=== PATIENT | female | born 1950 | race Caucasian/White ===

== ENCOUNTER 2019-02-21 06:00 | Outpatient (RCR) | payer MEDICARE, OTHER, SELFPAY | END 2019-03-23 00:01 | LOC: SOT 06:00 | PROVIDERS: Family Provider Electrodiagnostic Medicine; Visit Provider Orthopaedic Surgery | DX: Z47.89 Encounter for other orthopedic aftercare (principal) | CPT/HCPCS: 97110 ×3; 97112; G0283 ==

== ENCOUNTER 2019-03-15 17:21 | Inpatient (IN) | payer MEDICARE, OTHER, SELFPAY | END 2019-03-17 15:05 | disposition home health service (06) | DRG 176 | PROVIDERS: Admitting Provider Internal Medicine; Family Provider Electrodiagnostic Medicine; Visit Provider Student in an Organized Health Care Education/Training Program | DX: I26.99 Other pulmonary embolism without acute cor pulmonale (principal); E03.9 Hypothyroidism, unspecified; F41.8 Other specified anxiety disorders ==

== ENCOUNTER 2019-03-24 12:33 | Outpatient (RCR) | payer MEDICARE, OTHER, SELFPAY | END 2019-04-23 23:59 | disposition home or self-care (01) | LOC: SOT 12:33 | PROVIDERS: Family Provider Electrodiagnostic Medicine; PCP Electrodiagnostic Medicine; Visit Provider Orthopaedic Surgery | DX: S42.302D Unspecified fracture of shaft of humerus, left arm, subsequent encounter for fracture with routine healing (principal); X58.XXXD Exposure to other specified factors, subsequent encounter ==

== ENCOUNTER → 2019-04-05 13:52 | Outpatient (BNVA) | payer MEDICARE, OTHER, SELFPAY | PROVIDERS: Family Provider Electrodiagnostic Medicine; PCP Electrodiagnostic Medicine; Visit Provider Orthopaedic Surgery | DX: S42.302A Unspecified fracture of shaft of humerus, left arm, initial encounter for closed fracture (principal); X58.XXXA Exposure to other specified factors, initial encounter | CPT/HCPCS: 73030 ==

== ENCOUNTER 2019-04-19 07:13 | Outpatient (RCR) | payer MEDICARE, OTHER, SELFPAY | END 2019-04-23 23:59 | disposition home or self-care (01) | LOC: SPT 07:13 | PROVIDERS: Family Provider Electrodiagnostic Medicine; PCP Electrodiagnostic Medicine; Referring Provider Orthopaedic Surgery; Visit Provider Orthopaedic Surgery | DX: S42.202D Unspecified fracture of upper end of left humerus, subsequent encounter for fracture with routine healing (principal); X58.XXXD Exposure to other specified factors, subsequent encounter | CPT/HCPCS: 97110; 97162 ==

== ENCOUNTER 2019-04-24 06:00 | Outpatient (RCR) | payer MEDICARE, OTHER, SELFPAY | END 2019-05-22 23:59 | disposition home or self-care (01) | LOC: SOT 06:00 | PROVIDERS: Family Provider Electrodiagnostic Medicine; PCP Electrodiagnostic Medicine; Visit Provider Orthopaedic Surgery | DX: Z01.89 Encounter for other specified special examinations (principal) ==

== ENCOUNTER 2019-04-24 06:00 | Outpatient (RCR) | payer MEDICARE, OTHER, SELFPAY | END 2019-05-22 23:59 | disposition home or self-care (01) | LOC: SPT 06:00 | PROVIDERS: Family Provider Electrodiagnostic Medicine; PCP Electrodiagnostic Medicine; Referring Provider Orthopaedic Surgery; Visit Provider Orthopaedic Surgery | DX: S42.202D Unspecified fracture of upper end of left humerus, subsequent encounter for fracture with routine healing (principal); X58.XXXD Exposure to other specified factors, subsequent encounter | CPT/HCPCS: 97110 ==

== ENCOUNTER 2019-05-23 06:00 | Outpatient (RCR) | payer MEDICARE, OTHER, SELFPAY | END 2019-06-22 23:59 | disposition home or self-care (01) | LOC: SPT 06:00 | PROVIDERS: Family Provider Electrodiagnostic Medicine; PCP Nurse Practitioner; Referring Provider Orthopaedic Surgery; Visit Provider Orthopaedic Surgery | DX: Z47.89 Encounter for other orthopedic aftercare (principal) | CPT/HCPCS: 97110 ==

== ENCOUNTER 2020-12-08 09:52 | Outpatient (CLI) | payer MEDICARE, OTHER, SELFPAY ==
[2020-12-08 10:12] VITALS: BP 101/79; PULSE 73; RESP 18; TEMP 36.8; O2SAT 98; BMI 29.1
[2020-12-08 10:40] VITALS: BP 94/68; PULSE 73; RESP 16; TEMP 36.8; O2SAT 97
[2020-12-08 11:40] VITALS: BP 101/63; PULSE 62; RESP 18; TEMP 36.7; O2SAT 94
== END 2020-12-08 09:53 | disposition home or self-care (01) ==
LOC: OPS 09:56
PROVIDERS: PCP Electrodiagnostic Medicine; Visit Provider Electrodiagnostic Medicine
DX: U07.1 COVID-19 (principal)
CPT/HCPCS: 96365

== ENCOUNTER → 2023-05-15 08:29 | Outpatient (BNVA) | payer MEDICARE, SELFPAY | PROVIDERS: PCP Electrodiagnostic Medicine; Referring Provider Electrodiagnostic Medicine; Visit Provider Dermatology | DX: S20.309A Unspecified superficial injuries of unspecified front wall of thorax, initial encounter (principal); X58.XXXA Exposure to other specified factors, initial encounter; L57.0 Actinic keratosis; L81.4 Other melanin hyperpigmentation; L57.8 Other skin changes due to chronic exposure to nonionizing radiation; D22.39 Melanocytic nevi of other parts of face; D48.5 Neoplasm of uncertain behavior of skin | CPT/HCPCS: 11102; 17000; 99203 ==

== ENCOUNTER → 2023-11-12 14:23 | Outpatient (BNVA) | payer MEDICARE, SELFPAY | PROVIDERS: PCP Electrodiagnostic Medicine; Visit Provider Nurse Practitioner Family | DX: L81.4 Other melanin hyperpigmentation (principal); L57.8 Other skin changes due to chronic exposure to nonionizing radiation; L82.1 Other seborrheic keratosis; D22.39 Melanocytic nevi of other parts of face; Z85.828 Personal history of other malignant neoplasm of skin | CPT/HCPCS: 99213 ==

== ENCOUNTER → 2023-12-23 08:35 | Outpatient (BNVA) | payer MEDICARE, SELFPAY | PROVIDERS: PCP Electrodiagnostic Medicine; Visit Provider Nurse Practitioner Family | DX: D48.5 Neoplasm of uncertain behavior of skin (principal); L82.1 Other seborrheic keratosis; D18.01 Hemangioma of skin and subcutaneous tissue; L81.4 Other melanin hyperpigmentation; L57.8 Other skin changes due to chronic exposure to nonionizing radiation; Z85.828 Personal history of other malignant neoplasm of skin | CPT/HCPCS: 11102; 99213 ==

== ENCOUNTER → 2024-10-19 07:58 | Outpatient (BNVA) | payer MEDICARE, SELFPAY | PROVIDERS: PCP Electrodiagnostic Medicine; Visit Provider Internal Medicine Cardiovascular Disease | DX: R00.2 Palpitations (principal); E03.9 Hypothyroidism, unspecified; I10 Essential (primary) hypertension; E78.2 Mixed hyperlipidemia; Z79.01 Long term (current) use of anticoagulants | CPT/HCPCS: 93005; 99204 ==

== ENCOUNTER 2024-12-10 08:10 | Outpatient (CLI) | payer MEDICARE, SELFPAY ==
--- NOTE | 2024-12-10 | ECG_ITS ---
[facility]10 Pat Name: Carley Trotter Department: Room: Gender: Female [employer]sembled [employer] Rep[employer]r: : 1950 Requested By: Warren Benton Order Number: [id number] [place] MD: Warren Benton M.D. Interpretive Statements Procedure: The patient was exercised by the Mark protocol. Vital signs and ECG findings: Baseline blood pressure 139/82 with a heart rate of 65 The patient exercised for 3 minutes and 46 seconds which is below average for the patient's age. Patient achieved 4.6 METS of exercise Maximum heart rate reached was 141 which is 95% of maximal predicted heart rate Maximum blood pressure was 100 [id number]/100 Blood pressure at the end of recovery was 168/75 with a heart rate of 73 Baseline EKG shows normal sinus rhythm with nonspecific T wave flattening and low voltage in the precordial leads There were frequent PVCs during exercise There were no ST-T changes compared to baseline CONCLUSION: 1. Exercise capacity was below average for age. 2. Heart rate response was appropriate. 3. Blood pressure response was appropriate. 4. No symptoms of angina during exercise. 5. Frequent premature ventricular contractions during exercise, resolved in recovery. 6. Electrocardiogram portion of the stress test without evidence of ischemia. 7. Nuclear scan will be documented separately. Electronically Signed On 12-19-2024 14:56:50 CDT by Warren Benton M.D. [email or web address]
--- NOTE | 2024-12-10 08:22 | USCV_ITS ---
Carley Trotter Age: 74 Gender: F : 1950 Exam Date: 12/10/2024 09:03 Ordering Phys: Warren Benton MD ([email or web address]) Technologist: Ian Villanueva Exam Location: [facility] [place] Indication: sob BP: 148 / 72 HR: 57 Rhythm: Sinus Technical Quality: Adequate MEASUREMENTS (Male / Female) Normal Values 2D ECHO LV Diastolic Diameter PLAX 4.8 cm 4.2 - 5.9 / 3.9 - 5.3 cm IVS Diastolic Thickness 0.8 cm 0.6 - 1.0 / 0.6 - 0.9 cm IVS Systolic Thickness 1.1 cm LVPW Diastolic Thickness 0.8 cm 0.6 - 1.0 / 0.6 - 0.9 cm LVPW Systolic Thickness 1.4 cm LVOT Diameter 2.0 cm LV Ejection Fraction 2D Teich 66.2 % LV Ejection Fraction MOD 4C 77.3 % LV Ejection Fraction MOD 2C 66.9 % LV Ejection Fraction 2C AL 66.8 % LA Diameter 3.5 cm RA Systolic Volume 4C AL 25.7 ml RA Systolic Volume 4C MOD 25.1 ml LA Sys Volume AL 35.3 cm cubed LA Sys Volume Index AL 18.2 cm cubed/m squared Aorta at Sinotubular Diameter 2.6 cm IVC Diameter 1.5 cm M-MODE LA Ao Ratio MM 1.0 AV Cusp Separation MM 2.1 cm DOPPLER AV Peak Velocity 97.0 cm/s LVOT Peak Velocity 90.0 cm/s AV Area Cont Eq vti 3.7 cm squared AV Area Cont Eq pk 2.9 cm squared MV Peak Velocity 86.0 cm/s MV Area PHT 3.9 cm squared Mitral E to A Ratio 0.8 PV Peak Velocity 74.7 cm/s RV Ejection Time 0.3 s FINDINGS Left Ventricle Normal left ventricular size, systolic function and wall thickness, with no regional wall motion abnormalities. Left ventricular ejection fraction is 66%. Normal diastolic function. Right Ventricle Normal right ventricular size and systolic function. RVSP could not be calculated due to incomplete tricuspid regurgitation velocity profile. Right Atrium Normal right atrial size. Left Atrium Normal left atrial size. Mitral Valve No mitral valve stenosis. Trace mitral valve regurgitation. Aortic Valve No aortic valve stenosis. No aortic valve regurgitation. Tricuspid Valve Trace tricuspid valve regurgitation. Pulmonic Valve Trace pulmonary valve regurgitation. Pericardium No pericardial effusion. Aorta Normal size aortic root and proximal ascending aorta. IVC Normal inferior vena cava. CONCLUSIONS 1. Normal biventricular size and function. EF 66%. 2. Normal LV diastolic function. 3.RVSP could not be calculated due to incomplete tricuspid regurgitation velocity profile. 4. No significant valvular abnormalities Warren Benton MD, FACC (Electronically Signed) Final Date: 16 December 2024 20:48 S
--- NOTE | 2024-12-10 10:59 | NMCV_ITS ---
NM vamsi perf SPECT r/s* [id number] SergoCarlye Age: 74 Gender: F : 1950 Exam Date: 12/10/2024 11:00 Ordering Phys: Warren Benton MD ([email or web address]) Technologist: GIULIA Sahu Exam Location: [facility] Indications: cp STRESS TEST Please see separate stress test report in [facility] for full findings IMAGE PROTOCOL Rest/Stress 1 Exercise Day Radiopharmaceutical Dose (mCi) Administration Site Administered by Rest: Tc-99m 10.4 IV GIULIA Sahu Sestamibi Stress:Tc-99m 32.8 IV GIULIA Sosa Sestamibi Rest: 10-Dec-2024 60 Discovery 630 Stress: 10-Dec-2024 15 Discovery 630 Radiopharmaceutical was injected at 86 % maximum heart rate. Supine position only as patient was unable to lay prone. SPECT RESULTS Technical Quality: Good Raw Data Analysis: Normal Image Corrections: No attenuation or motion correction applied Summed Stress Score: 2 Summed Rest Score: 2 Summed Difference Score: 1 PERFUSION FINDINGS Medium sized area of patchy decreased tracer uptake noted in basal to distal inferior wall which showed small to medium sized area of moderate reversibility in the inferior and inferoseptal region suggestive of old myocardial infarction surrounded by small to medium sized area of moderate ischemia in the RCA territory. FUNCTIONAL RESULTS (calculated via Gated SPECT) Stress Image LV EF (%): 84 Stress EDV (mL):64 TID: 0.95 Stress ESV (mL):10 FUNCTIONAL FINDINGS: In general appeared to have no wall motion abnormality however probably it is the angle of the slice which makes wall motion in the inferoseptal region suspicious for hypokinesis. Clinical correlation advised IMPRESSIONS Medium sized area of patchy decreased tracer uptake noted in basal to distal inferior wall which showed small to medium sized area of moderate reversibility in the inferior and inferoseptal region suggestive of old myocardial infarction surrounded by small to medium sized area of moderate ischemia in the RCA territory. Mario Wilder MD (Electronically Signed) Final Date: 13 December 2024 15:13 S
[2024-12-10 11:01] VITALS: BMI 29.1
[2024-12-10 12:04] VITALS: BP 168/75; PULSE 77
== END 2024-12-10 08:11 | disposition home or self-care (01) ==
LOC: CDL 08:12
PROVIDERS: PCP Electrodiagnostic Medicine; Visit Provider Internal Medicine Cardiovascular Disease
DX: R07.9 Chest pain, unspecified (principal); R06.02 Shortness of breath; R93.1 Abnormal findings on diagnostic imaging of heart and coronary circulation
CPT/HCPCS: 36415; 78452; 93017; 93306; 96374; A9500